=== PATIENT | male | born 1985 | race Caucasian/White ===

== ENCOUNTER 2016-12-02 10:47 | Emergency (ER) | payer BC, OTHER ==
[~2016-12-02] VITALS: Ht 175.3 cm; Wt 76.0 kg
[2016-12-02 10:49] VITALS: Ht 175.3 cm; Wt 76.0 kg
--- NOTE | 2016-12-02 11:34 | ERD ---
ER Documentation Chief Complaint Date/Time DATE: 12/02/16 TIME: 11:17 Chief Complaint abscess on buttocks x 2 days HPI Otherwise healthy 31-year-old male presents emergency department for complaints of a mass near the midline buttocks region 2 days. Patient states that yesterday he noticed the mass draining and his girlfriend assisted with draining the mass fully. She states she also cleansed the mass. Patient denies any pain, fever, nausea, vomiting, diarrhea, abdominal pain, headache, dizziness. ROS All systems reviewed and are negative except as per history of present illness. Allergies Allergies: Coded Allergies: No Known Allergy (Unverified , 12/02/16) Physical Exam Vitals Vital Signs Date Time Temp Pulse Resp B/P Pulse Ox O2 Delivery O2 Flow Rate FiO2 12/02/16 10:49 98.3 84 19 133/70 98 Physical Exam Const: Well developed, well-nourished, in no acute distress Neck: Full range of motion..~ No meningismus. Resp: Clear to auscultation bilaterally Cardio: Regular rate and rhythm, no murmurs Abd: Soft, non tender, non distended. Normal bowel sounds Skin: 1/2 cm open wound with mild active bleeding located at the midline gluteal fold. No surrounding erythema or swelling. No fluctuance. No tenderness to palpation. Unable to express any purulent or serous fluid from the wound. Back: No midline or flank tenderness Ext: No cyanosis, or edema Neur: Awake and alert Psych: Normal Mood and Affect Procedures/MDM This is an otherwise healthy 31-year-old male who presents the emergency department for complaints of a mass near the buttocks region 2 days. Patient well-appearing, nontoxic and well nourished upon arrival. Patient afebrile, non -tachycardic, normotensive and non-hypoxic. Physical exam with evidence of small open draining wound at the midline gluteal fold without surrounding swelling or erythema. No fluctuance or tenderness to palpation of the site. At this time no indication for incision and drainage. Exam and w/u not consistent w/ sepsis, deep space infection, or foreign body. I believe it would be appropriate for conservative management with topical antibiotic ointment. I will however provide the patient with oral antibiotics to use if symptoms worsen or patient experiences swelling and erythema. Strict return precautions discussed. Based on patient's history of present illness and physical examination the decision was made to discharge. There is no evidence of life threatening injuries or illnesses at this time. On re-examination, patient resting in no distress, stable vital signs, reports feeling better and safe for discharge with outpatient follow up with PMD in 1-2 days. Patient given return precautions. Departure Diagnosis: Primary Impression: Pilonidal cyst CHARANJIT NATH PA-C Dec 02, 2016 11:29
[2016-12-02] MEDS ORDERED: MUPI22OI2 TOP (11:36)
[2016-12-02] MEDS ORDERED: SULF1TAB31 PO (11:36)
== END 2016-12-02 12:34 | disposition home or self-care (01) ==
LOC: FTE 10:47
DX: L05.91 Pilonidal cyst without abscess (principal)
CPT/HCPCS: 99284